=== PATIENT | female | born 1935 | race Two or more races ===

== ENCOUNTER 2019-02-01 10:22 | Outpatient (CLI) | payer OTHER ==
[~2019-02-01 10:22] MED LIST: AMBIEN5 MG PO; CATAFLAM50 MG PO; ULTRACET PO
== END 2019-02-01 10:33 | disposition home or self-care (01) ==
LOC: RAD 501 10:22
DX: H25.011 Cortical age-related cataract, right eye (principal); Z98.41 Cataract extraction status, right eye

== ENCOUNTER 2019-12-03 09:30 | Emergency (ER) | payer OTHER ==
[~2019-12-03] VITALS: Ht 170.2 cm; Wt 80.3 kg
[2019-12-03] MEDS ORDERED: MICROZIDE12.5 MG PO (09:50)
[2019-12-03] MEDS ORDERED: GLIMEPIRIDE4 M1 PO (09:50)
[2019-12-03] MEDS ORDERED: LIPITOR40 M1 PO (09:50)
[2019-12-03] MEDS ORDERED: PROTONIX20 MG PO (09:51)
[2019-12-03] MEDS ORDERED: NORVASC5 MG PO (09:51)
[2019-12-03] MEDS ORDERED: TOPROL XL100 M1 PO (09:51)
[2019-12-03] MEDS ORDERED: CARDURA XL4 MG PO (09:52)
[2019-12-03] MEDS ORDERED: LOSARTAN-HCTZ1 EAC1 PO (09:52)
[2019-12-03] MEDS ORDERED: OSEL75CA PO (11:28)
[2019-12-03] MEDS ORDERED: DIABETIC TUSSI118 M3 PO (11:28)
== END 2019-12-03 12:34 | disposition home or self-care (01) ==
LOC: ER 09:30
DX: J11.1 Influenza due to unidentified influenza virus with other respiratory manifestations (principal)

== ENCOUNTER 2021-05-19 11:57 | Emergency (ER) | payer OTHER ==
[~2021-05-19] VITALS: Ht 170.2 cm; Wt 81.6 kg
[~2021-05-19 11:57] MED LIST changes: +CARDURA XL4 MG PO; +DIABETIC TUSSI118 M3 PO; +GLIMEPIRIDE4 M1 PO; +LIPITOR40 M1 PO; +LOSARTAN-HCTZ1 EAC1 PO; +MICROZIDE12.5 MG PO; +NORVASC5 MG PO; +OSEL75CA PO; +PROTONIX20 MG PO; +TOPROL XL100 M1 PO
[2021-05-19] MEDS ORDERED: SIMVASTATIN5 MG PO (12:14)
[2021-05-19] MEDS ORDERED: JANUVIA50 MG PO (12:16)
[2021-05-19] MEDS ORDERED: ZETIA10 MG PO (12:17)
[2021-05-19] MEDS ORDERED: GAS RELIEF180 MG PO (12:17)
== END 2021-05-19 16:29 | disposition home or self-care (01) ==
LOC: ER 11:57
DX: R53.1 Weakness (principal); R00.2 Palpitations; N39.0 Urinary tract infection, site not specified; B96.29 Other Escherichia coli [E. coli] as the cause of diseases classified elsewhere

== ENCOUNTER 2022-02-24 10:09 | Emergency (ER) | payer OTHER ==
[~2022-02-24] VITALS: Ht 170.2 cm; Wt 83.5 kg
[~2022-02-24 10:09] MED LIST changes: +GAS RELIEF180 MG PO; +JANUVIA50 MG PO; +SIMVASTATIN5 MG PO; +ZETIA10 MG PO
== END 2022-02-24 17:09 ==
LOC: ER 10:09
DX: N30.90 Cystitis, unspecified without hematuria (principal); N20.0 Calculus of kidney

== ENCOUNTER 2022-03-02 10:43 | Emergency (ER) | payer OTHER ==
[~2022-03-02] VITALS: Ht 170.2 cm; Wt 81.6 kg
[2022-03-02] MEDS ORDERED: ATACAND32 MG PO (10:56)
[2022-03-02] MEDS ORDERED: ZETIA10 MG PO (10:57)
== END 2022-03-02 15:35 | disposition home or self-care (01) ==
LOC: ER 10:43
DX: N23 Unspecified renal colic (principal); N30.90 Cystitis, unspecified without hematuria; I10 Essential (primary) hypertension

== ENCOUNTER 2022-03-03 22:37 | Emergency (ER) | payer OTHER ==
[~2022-03-03] VITALS: Ht 165.1 cm; Wt 81.6 kg
[~2022-03-03 22:37] MED LIST changes: +ATACAND32 MG PO
[2022-03-04] MEDS ORDERED: MOBIC15 MG PO (06:27)
== END 2022-03-04 06:42 ==
LOC: ER 22:37
DX: N20.1 Calculus of ureter (principal); K57.30 Diverticulosis of large intestine without perforation or abscess without bleeding

== ENCOUNTER → 2022-09-15 | Emergency (ER) | payer OTHER ==
[~2022-09-15] VITALS: Ht 167.6 cm; Wt 78.0 kg
[~2022-09-15] MED LIST changes: +CIPRO500 MG PO; +MOBIC15 MG PO; +POTASSIUM CITR15 MEQ
== END | disposition home or self-care (01) ==
LOC: ER 11:05
DX: R30.0 Dysuria (principal); E11.9 Type 2 diabetes mellitus without complications; I10 Essential (primary) hypertension; E78.00 Pure hypercholesterolemia, unspecified; Z79.84 Long term (current) use of oral hypoglycemic drugs

== ENCOUNTER 2023-03-29 08:11 | Emergency (ER) | payer OTHER ==
[~2023-03-29] VITALS: Ht 170.2 cm; Wt 78.0 kg
[2023-03-29] MEDS ORDERED: GLIMEPIRIDE2 MG (08:37)
[2023-03-29] MEDS ORDERED: ZOCOR20 MG PO (08:38)
[2023-03-29] MEDS ORDERED: NORVASC10 MG PO (08:39)
[2023-03-29] MEDS ORDERED: BACTRIM DS TAB1 EACH PO (11:51)
== END 2023-03-29 12:29 | disposition home or self-care (01) ==
LOC: ER 08:11
DX: N39.0 Urinary tract infection, site not specified (principal); Z87.442 Personal history of urinary calculi; K57.30 Diverticulosis of large intestine without perforation or abscess without bleeding; R30.0 Dysuria; E11.9 Type 2 diabetes mellitus without complications; Z79.84 Long term (current) use of oral hypoglycemic drugs

== ENCOUNTER 2023-04-27 09:54 | Emergency (ER) | payer OTHER ==
[~2023-04-27] VITALS: Ht 162.6 cm; Wt 119.7 kg
[~2023-04-27 09:54] MED LIST changes: +BACTRIM DS TAB1 EACH PO; +GLIMEPIRIDE2 MG; +NORVASC10 MG PO; +ZOCOR20 MG PO
[2023-04-27] MEDS ORDERED: PAXLOVID 150-11 EACH PO (15:04)
[2023-04-27] MEDS ORDERED: DIABETIC T100 MG/52 PO (15:06)
[2023-04-28] MEDS ORDERED: NABUMETONE750 MG PO (01:15)
== END 2023-04-27 15:10 | disposition home or self-care (01) ==
LOC: ER 09:54
DX: U07.1 COVID-19 (principal); E11.9 Type 2 diabetes mellitus without complications; Z79.84 Long term (current) use of oral hypoglycemic drugs; I10 Essential (primary) hypertension

== ENCOUNTER 2023-04-27 20:36 | Emergency (ER) | payer OTHER ==
[~2023-04-27] VITALS: Ht 162.6 cm; Wt 78.9 kg
[~2023-04-27 20:36] MED LIST changes: +DIABETIC T100 MG/52 PO; +PAXLOVID 150-11 EACH PO
[2023-04-28] MEDS ORDERED: NABUMETONE750 MG PO (01:15)
== END 2023-04-28 01:25 ==
LOC: ER 20:36
DX: S42.91XA Fracture of right shoulder girdle, part unspecified, initial encounter for closed fracture (principal); W19.XXXA Unspecified fall, initial encounter; Y93.89 Activity, other specified; Y92.018 Other place in single-family (private) house as the place of occurrence of the external cause; Y99.9 Unspecified external cause status; I10 Essential (primary) hypertension; E11.9 Type 2 diabetes mellitus without complications; Z79.84 Long term (current) use of oral hypoglycemic drugs

== ENCOUNTER 2023-05-05 08:37 | Outpatient (CLI) | payer OTHER ==
[~2023-05-05 08:37] MED LIST changes: +NABUMETONE750 MG PO
== END 2023-05-05 08:39 | disposition home or self-care (01) ==
LOC: RAD 08:37
PROVIDERS: ATTEND Orthopaedic Surgery
DX: S42.231A 3-part fracture of surgical neck of right humerus, initial encounter for closed fracture (principal)

== ENCOUNTER → 2023-06-13 | Outpatient (CLI) | payer OTHER | END | disposition home or self-care (01) | LOC: RAD 15:05 | PROVIDERS: ATTEND Specialist | DX: N20.0 Calculus of kidney (principal); J45.991 Cough variant asthma ==

== ENCOUNTER 2023-08-05 13:19 | Outpatient (CLI) | payer OTHER | END 2023-08-05 13:26 | disposition home or self-care (01) | LOC: NUCLEAR 13:19 | PROVIDERS: ATTEND Orthopaedic Surgery | DX: M81.0 Age-related osteoporosis without current pathological fracture (principal) ==

== ENCOUNTER → 2023-08-11 | Outpatient (CLI) | payer OTHER | END | disposition home or self-care (01) | LOC: RAD 10:18 | PROVIDERS: ATTEND Orthopaedic Surgery | DX: S42.231D 3-part fracture of surgical neck of right humerus, subsequent encounter for fracture with routine healing (principal) ==

== ENCOUNTER 2024-01-18 09:59 | Outpatient (CLI) | payer OTHER | END 2024-01-18 10:01 | disposition home or self-care (01) | LOC: SONOGRAMA 09:59 | PROVIDERS: ATTEND Urology | DX: N20.0 Calculus of kidney (principal) ==

== ENCOUNTER → 2024-08-16 | Outpatient (CLI) | payer OTHER | END | disposition home or self-care (01) | LOC: SONOGRAMA 11:53 | DX: N20.0 Calculus of kidney (principal) ==

== ENCOUNTER 2025-03-07 12:08 | Outpatient (CLI) | payer OTHER | END 2025-03-07 12:10 | disposition home or self-care (01) | LOC: SONOGRAMA 12:08 | PROVIDERS: ATTEND Urology | DX: N20.0 Calculus of kidney (principal) ==

== ENCOUNTER → 2025-09-03 | Outpatient (CLI) | payer OTHER | END | disposition home or self-care (01) | LOC: RAD 11:15 | PROVIDERS: ATTEND Urology | DX: N20.0 Calculus of kidney (principal) ==